=== PATIENT | female | born 1955 | race Caucasian/White ===

== ENCOUNTER 2021-01-03 13:33 | Emergency (ER) | payer MEDICARE ==
[~2021-01-03 13:33] MED LIST: TOPROL XL 25MG25 MG PO
[2021-01-03 14:23] LABS: EOSINOPHIL 3.9 % (0-7); HCT 41.1 % (37.0-47.0); HGB 12.8 g/dl (12.5-16.0); MCH 28.4 pg (25.0-31.0); MCHC 31.1 g/dL (32.0-36.0); MCV 91.3 fL (78.0-100.0); MONOCYTE 7.9 % (0-12); MPV 10.8 fL (6.0-9.5); NEUTROPHIL 65.5 % (41-80); NRBC 0; PLT 220 K/uL (150-400); RDW 15.3 % (11.5-14.0); WBC 6.8 K/uL (4.0-10.5)
[2021-01-03 14:51] LABS: ALBUMIN 3.5 g/dL (3.4-5.0); BILIRUBIN - TOTAL 0.4 mg/dL (0.2-1.0); BUN/CREAT RATIO (CALC) 14.9 RATIO; CREATININE 1.21 mg/dL (0.51-0.95); GLOBULIN (CALCULATION) 3.6 g/dL; POTASSIUM 4.1 mmol/L (3.5-5.1); TOTAL PROTEIN 7.1 g/dL (6.4-8.2)
[2021-01-03 15:11] LABS: CORONAVIRUS 2019 SARS-COV-2 NEGATIVE (NEGATIVE); INFLUENZA A NAA NEGATIVE (NEGATIVE)
[2021-01-03] MEDS ORDERED: PREDNISONE 20MG20 MG PO (15:37)
[2021-01-03] MEDS ORDERED: ATROVENT HFA12.9 GM INH (15:45)
== END 2021-01-03 16:28 | disposition home or self-care (01) ==
LOC: FER 13:33
PROVIDERS: Internal Medicine
DX: J45.901 Unspecified asthma with (acute) exacerbation (principal); I48.91 Unspecified atrial fibrillation; Z88.2 Allergy status to sulfonamides; Z79.01 Long term (current) use of anticoagulants; Z20.822 Contact with and (suspected) exposure to COVID-19
CPT/HCPCS: 36415; 71045; 80053; 83880; 84443; 84484; 85025; 93005; 94664; J1100; U0002

== ENCOUNTER 2021-11-15 15:40 | Emergency (ER) | payer MEDICARE ==
[~2021-11-15 15:40] MED LIST changes: +ATROVENT HFA12.9 GM INH; +PREDNISONE 20MG20 MG PO
[2021-11-15] MEDS ORDERED: CYCLOBENZAPRINE10 MG PO ×2 (19:05→19:36)
== END 2021-11-15 19:39 | disposition home or self-care (01) ==
LOC: FER 15:40
DX: S83.91XA Sprain of unspecified site of right knee, initial encounter (principal); J45.909 Unspecified asthma, uncomplicated; W01.0XXA Fall on same level from slipping, tripping and stumbling without subsequent striking against object, initial encounter; X50.1XXA Overexertion from prolonged static or awkward postures, initial encounter
CPT/HCPCS: 73564